=== PATIENT | male | born 1970 | race Caucasian/White ===

== ENCOUNTER → 2017-01-22 | Outpatient (CLI) | payer OTHER ==
[~2017-01-22] MED LIST: CYCL10TA45 PO; LISI10TA2 PO; PRD20T PO; SULF1TAB38 PO; TRAM50TA2 PO
--- NOTE | 2017-01-22 13:25 | Diagnostic Imaging Report ---
EXAMINATION: Three views of the left clavicle. INDICATION: Fall. FINDINGS: No fracture, dislocation or radiopaque foreign body. IMPRESSION: No fracture seen. Dictated by: Dictated on workstation # [id number]
== END ==
LOC: RAD 11:56
PROVIDERS: ATTEND Nurse Practitioner Family
DX: M25.512 Pain in left shoulder (principal)
CPT/HCPCS: 73000